=== PATIENT | female | born 1935 | race Caucasian/White ===

== ENCOUNTER → 2016-07-18 | Outpatient (CLI) | payer MEDICARE ==
--- NOTE | 2016-07-18 12:23 | XR ---
EXAMINATION TYPE: XR shoulder complete LT DATE OF EXAM: 07/18/2016 12:15 PM CLINICAL HISTORY: pain COMPARISON: NONE TECHNIQUE: Three views of the left shoulder are obtained. FINDINGS: There is no acute fracture/dislocation evident. The acromioclavicular and glenohumeral vishal int spaces appear mildly narrowed.. The visualized ribs are intact and unremarkable. IMPRESSION: 1. There is no acute fracture or dislocation. ICD 10 NO FRACTURE, INITIAL EVALUATION
--- NOTE | 2016-07-18 12:26 | XR ---
EXAMINATION TYPE: XR ribs LT w pa chest xray DATE OF EXAM: 07/18/2016 12:14 PM CLINICAL HISTORY: Pain, Fall Four views of the ribs fail demonstrate evidence for displaced rib fracture or secondary sign of rib fracture. Visualized lungs are clear. No evidence for pneumothorax. IMPRESSION: No displaced rib fractures seen. ICD 10 NO FRACTURE, INITIAL EVALUATION
== END ==
LOC: RADXRMAIN 11:37
PROVIDERS: ATTEND Family Medicine
DX: S23.41XA Sprain of ribs, initial encounter (principal); M25.512 Pain in left shoulder

== ENCOUNTER → 2016-12-04 | Outpatient (CLI) | payer MEDICARE ==
[~2016-12-04] MED LIST: REGADENOSON 0.4 MG/5 ML SYRINGE IV ONE
--- NOTE | 2016-12-04 10:42 | NM ---
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 The patient received 0.4mg Lexiscan, 27.3 mCi Tc 99m Sestamibi - Stress images obtained [address] injection FINDINGS: Review of stress and rest SPECT images demonstrates no distinct perfusion abnormality. Gated analysi s shows normal wall motion with an estimated left ventricular ejection fraction of 84 %. IMPRESSION: No scintigraphic evidence for reversible ischemia.
--- NOTE | 2016-12-04 11:18 | EST ---
DATE OF SERVICE: 12/04/16 TYPE OF REPORT: Lexiscan Stress Test INDICATIONS: Chest pain, coronary artery disease. BASELINE HEART RATE: 70 BASELINE BLOOD PRESSURE: 113/66 MAXIMUM HEART RATE: 85 MAXIMUM BLOOD PRESSURE: 156/55 85% MPHR 120 100% MPHR 141 METS: MAXIMUM STAGE REACHED: TOTAL EXERCISE TIME: Baseline EKG revealed a normal sinus rhythm without significant ST-T changes. With Lexiscan administration, the patient did not have any significant symptoms. Heart rate changed from 70 to 85 beats per minute. Blood pressure changed from 113/66 to 156/60 and then came back to baseline. EKG remained unremarkable. By EKG criteria, this is an unremarkable Lexiscan stress test. The nuclear scans which are more pertinent will be reported by the radiologist. RODERICK
== END | disposition home or self-care (01) ==
LOC: RADNMMAIN 07:58
PROVIDERS: ATTEND Family Medicine
DX: I25.10 Atherosclerotic heart disease of native coronary artery without angina pectoris (principal)
CPT/HCPCS: 93017; 78452; A9500; J2785

== ENCOUNTER → 2017-08-22 | Outpatient (CLI) | payer MEDICARE ==
--- NOTE | 2017-08-22 13:27 | XR ---
EXAMINATION TYPE: XR cervical spine limited DATE OF EXAM: 08/22/2017 TECHNIQUE: Frontal, lateral, oblique, swimmers, and open mouth view of the cervical spine are obtaine d. HISTORY: 54.2 cervicalgia COMPARISON: None FINDINGS: The cervical spine is visualized in its entirety from C1 thru the top of T1 level. The pr e-vertebral soft tissue appears within normal limits. The C1-C2 articulation is within normal limits on the open mouth view. The cervical spine maintains normal vertebral body heights. Mild multilevel degenerative changes of the cervical spine are seen at C3-C4 and C5-C6. There is slight (grade 1) ant erolisthesis of C4 and C5, C5 on C6, and C6 on C7. This is likely on a degenerative basis. Multilevel uncovertebral hypertrophy and facet arthropathy are seen throughout the cervical spine. Incidental n ote of minimal left carotid calcifications. Visualized lung apices are unremarkable. IMPRESSION: 1. No acute fracture or dislocation is seen in the cervical spine. 2. Multilevel degenerative disc disease with grade 1 anterolisthesis of C4 on C5, C5 on C6, and C6 on C7 that are likely on a degenerative basis.
== END | disposition home or self-care (01) ==
LOC: RADXRMAIN 12:29
PROVIDERS: ATTEND Family Medicine
DX: M50.321 Other cervical disc degeneration at C4-C5 level (principal); M43.12 Spondylolisthesis, cervical region
CPT/HCPCS: 72040

== ENCOUNTER → 2018-01-22 | Outpatient (CLI) | payer MEDICARE ==
--- NOTE | 2018-01-22 12:40 | XR ---
EXAMINATION TYPE: XR hand complete LT DATE OF EXAM: 01/22/2018 COMPARISON: NONE HISTORY: 82-year-old female pain from fall TECHNIQUE: 3 views FINDINGS: Diffuse osteopenia. Severe degenerative change at the first CMC joint with radial sided joint subluxa tion. Subchondral sclerosis and prominent marginal spurring is present. No periarticular erosions. Ad ditional moderate degenerative change triscaphe joint. Additional scattered osteoarthritis spurring i s present at the DIP joints. No acute fracture, subluxation, or dislocation seen. IMPRESSION: 1. Osteopenia. No displaced fracture seen. 2. Endstage OA base of the thumb. 3. Additional scattered dezh-za-obtfdycz osteoarthritic changes within the fingers.
== END | disposition home or self-care (01) ==
LOC: RADXRMAIN 12:17
PROVIDERS: ATTEND Family Medicine
DX: M19.042 Primary osteoarthritis, left hand (principal); M85.842 Other specified disorders of bone density and structure, left hand

== ENCOUNTER → 2020-01-11 | Outpatient (CLI) | payer MEDICARE ==
--- NOTE | 2020-01-13 10:18 | P.ARTDOP ---
Arterial Doppler LOWER EXTREMITY ARTERIAL DOPPLER: DATE OF SERVICE: 01/11/2020 Reason for study: Type 2 diabetes. Doppler waveforms: Multiphasic bilaterally throughout. Pulse volume recording: []. Pressure gradients: None. Ankle-brachial indices: Greater than 1 bilaterally. Toe brachial indices: 0.67 on the right, 0.7 on the left Impression: Normal study.
== END | disposition home or self-care (01) ==
LOC: RADUSWWP 13:34
PROVIDERS: ATTEND Family Medicine
DX: I73.9 Peripheral vascular disease, unspecified (principal)
CPT/HCPCS: 93923